=== PATIENT | female | born 1960 | race Caucasian/White ===

== ENCOUNTER 2016-08-13 09:44 | Emergency (ER) | payer SELFPAY ==
[2016-08-13] MEDS ORDERED: Acetaminophen 500 MG TAB ONE (10:21)
--- NOTE | 2016-08-13 10:38 | ERRECORD ---
[facility] EMERGENCY RECORD HPI COUGH (10:18 SHAN) CHIEF COMPLAINT: Patient presents for evaluation of cough, Patient presents for evaluation of facial tenderness, left more on right, green sputum, going on for several days and worsening. HISTORIAN: History provided by patient. RELIEVED BY: Patient's condition relieved by nothing. ROS (10:19 SHAN) CONSTITUTIONAL: Negative constitutional review of systems, Historian denies chills, denies fever. EYES: Negative eye review of systems. ENT: Negative ears, nose, throat review of systems. CARDIOVASCULAR: Negative cardiovascular review of systems, Historian denies chest pain, denies palpitations. RESPIRATORY: Negative respiratory review of systems, Historian complains of cough, Historian denies shortness of breath. GI: Negative gastrointestinal review of systems, Historian denies abdominal pain, denies constipation, denies diarrhea. MUSCULOSKELETAL: Negative musculoskeletal review of systems. SKIN: Negative skin review of systems. NEUROLOGIC: Negative neurologic review of systems. ENDOCRINE: Negative endocrine review of systems. HEMO/LYMPHATIC: Normal hematologic/lymphatic system review. PSYCHIATRIC: Negative psychiatric review of systems. NOTES: All other ROS is negative except as listed in HPI. PAST MEDICAL HISTORY MEDICAL HISTORY: Notes: VERIFIED 03-19-15, No past medical history, No past medical history, Flu vaccine not up to date. (09:55 SFRE) FEMALE SURGICAL HISTORY: VERIFIED 03-19-15, Surgical history of tubal ligation, Date of surgery 1986, rt leg knee surgery, left hand tendon. (09:55 SFRE) PSYCHIATRIC HISTORY: Notes: VERIFIED 03-19-15, Notes: None. (09:55 SFRE) SOCIAL HISTORY: Social History includes VERIFIED 03-19-15, Patient drinks socially, every week, Patient denies drug use, Patient currently uses tobacco, smokes cigarettes, Light tobacco smoker, Patient has smoked for 30 years, Patient smokes 1/2 pack per day. DENIES DRUGS. (09:55 SFRE) NOTES: I have reviewed and agree with the PMH/PSxH/FamHx/SocHx obtained by the nurse. (:19 SHAN) KNOWN ALLERGIES No Known Allergies CURRENT MEDICATIONS (09:55 SFRE) None &a-1R&a+25V*p+0X*y5606L*c152B*c15G*c2P*p-0X&a-25V&a+1RName: Fifi Crouch : F55 MedRec: [id number] AcctNum: [id number] Prepared: Cyndee Aug 13, 2016 16:32 by Interface Page 1 of 3 pMD [facility] EMERGENCY RECORD VITAL SIGNS (09:53 SFRE) VITAL SIGNS: BP: 175/75, Pulse: 69, Resp: 18, Temp: 99.2 (Tympanic), Pain: 7 (Pressure), O2 sat: 99 on Room Air, Time: 08/13/2016 09:53. PHYSICAL EXAM (10:19 SHAN) CONSTITUTIONAL: Vital signs reviewed, Patient appears non toxic, Patient alert and oriented to person, place and time, Pt is in no apparent distress. HEAD: Head exam included findings of head atraumatic, normocephalic. EYES: Eye exam included findings of eyelids normal to inspection, Pupils equally round and reactive to light, Extraocular muscles intact. ENT: Nose exam normal, no nasal deformity, no bleeding from nares, Pharynx exam normal, Mouth exam normal, mucous membranes moist, bilateral maxillary sinus tenderness; right more than left. NECK: Neck exam included findings of normal range of motion, Trachea midline. RESPIRATORY CHEST: Respiratory and chest exam normal, Breath sounds with some mild ronchi, No wheezing, No rales, Chest exam included findings of chest movement symmetrical, Chest expansion equal. CARDIOVASCULAR: Cardiovascular assessment normal, Cardiovascular exam included findings of heart rate regular rate and rhythm, Heart sounds normal. ABDOMEN FEMALE: Abdominal exam included findings of abdomen nontender, Bowel sounds normal, no mass, no pulsatile masses, no peritoneal signs. BACK: Back exam included findings of normal inspection, range of motion normal, no costovertebral angle tenderness. UPPER EXTREMITY: Upper extremity exam included findings of inspection normal, Range of motion normal. LOWER EXTREMITY: Lower extremity exam included findings of inspection normal, Range of motion normal. NEURO: Neuro exam findings include patient oriented to person, place and time, Speech normal, no focal motor deficits, no focal sensory deficits. SKIN: Skin exam included findings of skin warm, dry, and normal in color. LYMPHATIC: Lymphatic exam normal. PSYCHIATRIC: Psychiatric exam included findings of patient oriented to person place and time, Normal affect. MEDICATION ADMINISTRATION SUMMARY Drug Name: Tylenol, Dose Ordered: 2 tab(s), Route: Oral, Status: Given, Time: 10:19 08/13/2016, Detailed record available in Medication Service section. &a-1R&a+25V*p+0X*k7035V*c152B*c15G*c2P*p-0X&a-25V&a+1RName: Fifi Crouch : F55 MedRec: [id number] AcctNum: [id number] Prepared: FriAug 13, 2016 16:32 by Interface Page 2 of 3 pMD [facility] EMERGENCY RECORD DOCTOR NOTES (:) TEXT: Adult female with respiratory virus and secondary maxillary sinusitis; right worse than left; getting worse and with green sputum and mild ronchi. PROBLEM LIST No recorded problems DIAGNOSIS (: YUNIER) FINAL: PRIMARY: bilateral maxillary sinusitis, acute, ADDITIONAL: Acute bronchitis. PRESCRIPTION (:) Cipro tablet: TABLET : 500 mg : ORAL : Quantity: 1 Unit: tab(s) Route: ORAL Schedule: 2 times a day Dispense: 20 Unit: tab(s) May substitute. Refills: No Refills . NOTES: No Refills. DISPOSITION PATIENT: Disposition Type: Discharge, Disposition: *Discharge Home. (: YUNIER) Patient left the department. (: JAMILA) Rodriguez: JAMILA=RICHY Byrd, Margot FAYE=MD Meghan, Garrick &a-1R&a+25V*p+0X*t1244Z*c152B*c15G*c2P*p-0X&a-25V&a+1RName: Fifi Crouch : F55 MedRec: [id number] AcctNum: [id number] Prepared: FriAug 13, 2016 16:32 by Interface Page 3 of 3 pMD [facility]
--- NOTE | 2016-08-13 10:42 | PICIS ---
[facility] EMERGENCY RECORD TRIAGE (09:55 SFRE) TRIAGE NOTES: SORE THROAT, EARS CLOGGED. (09:55 SFRE) PATIENT: NAME: Fifi Crouch, AGE: 55, GENDER: female, : Mon 1960, TIME OF GREET: FriAug 13, 2016 09:45, PREFERRED LANGUAGE: Portuguese, ETHNICITY: Not or , ECODE BILLING MAP: [facility], SSN: [id number], Zip Code: [address], KG WEIGHT: 63.50, PHONE: , , , PERSON ID: [id number], PCP: NO PCP. (09:55 SFRE) COMPLAINT: SORE THROAT,EARS CLOGGED. (09:55 SFRE) ADMISSION: URGENCY: 5 Fast Track, ADMISSION SOURCE: Home, TRANSPORT: Walk-in, BED: ED -04. (09:55 SFRE) PROVIDERS: TRIAGE NURSE: Margot Byrd RN. (09:55 SFRE) VITAL SIGNS: BP 175/75, Pulse 69, Resp 18, Temp 99.2, (Tympanic), Pain 7, (Pressure), O2 Sat 99, on Room Air, Time 08/13/2016 09:53. (09:53 SFRE) PREVIOUS VISIT ALLERGIES: No Known Allergies. (09:55 SFRE) No Known Allergies. (09:55 SFRE) KNOWN ALLERGIES No Known Allergies CURRENT MEDICATIONS (09:55 SFRE) None VITAL SIGNS (09:53 SFRE) VITAL SIGNS: BP: 175/75, Pulse: 69, Resp: 18, Temp: 99.2 (Tympanic), Pain: 7 (Pressure), O2 sat: 99 on Room Air, Time: 08/13/2016 09:53. NURSING ASSESSMENT: ENT (12:35 SFRE) CONSTITUTIONAL: Patient arrives ambulatory, Gait steady, History obtained from patient, Patient appears, generally ill, Patient cooperative, Patient alert, Oriented to person, place and time, Skin warm, Skin dry, Skin normal in color, Mucous membranes pink, Mucous membranes moist, Patient is well-groomed, Patient complains of SORE THROAT, EARS FEEL CLOGGED UP. PAIN: pressure pain, to bilateral ears, to the throat, on a scale 0-10 patient rates pain as 7, Pain exacerbated by nothing, Nothing has been tried to alleviate the pain. ENT: Mouth and throat assessment findings include mouth inspection normal, Uvula normal, Tonsils normal, Mucous membranes pink, and moist, Able to swallow, Speech normal, no associated fever, Associated with headache, GENERALIZED REPORTS PRESSURE ALL OVER HEAD, FACE, AND EARS. RESPIRATORY/CHEST: Breath sounds clear, Respiratory assessment findings include respiratory effort easy, Respirations regular, Conversing normally, Neck and chest exam findings include trachea midline, Chest expansion equal, Chest movement symmetrical, no signs of distress, no associated cough noted. &a-1R&a+25V*p+0X*f0860M*c152B*c15G*c2P*p-0X&a-25V&a+1RName: Fifi Crouch : F55 MedRec: [id number] AcctNum: [id number] Prepared: FriAug 13, 2016 16:38 by Interface Page 1 of 5 pMD [facility] EMERGENCY RECORD NURSING PROCEDURE: DISCHARGE NOTE (10:25 SFRE) DISCHARGE: Patient discharged to home, ambulating without assistance, driving self, unaccompanied, Summary of Care printed/ provided, Patient requested and was provided an electronic copy of Discharge Instructions, Discharge instructions given to patient, Simple or moderate discharge teaching performed, by RICHY MORENO, F/U WITH PCP. RX DIRECTED. RETURN TO ED NEEDED FOR NEW/CONCERNING OR WORSENING SYMPTOMS., Prescriptions given and instructions on side effects given, Name of prescription(s) given: Angelique CULP person(s) verbalized understanding of discharge instructions and follow-up care. MEDICATION ADMINISTRATION SUMMARY Drug Name: Tylenol, Dose Ordered: 2 tab(s), Route: Oral, Status: Given, Time: 10:19 08/13/2016, Detailed record available in Medication Service section. MEDICATION SERVICE (10:19 SHAN) Tylenol: Order: Tylenol (acetaminophen) - Dose: 2 tab(s) : Oral Schedule: Now Ordered by: Garrick Christianson MD Entered by: Garrick Christianson MD FriAug 13, 2016 10:17 Documented as given by: Margot Byrd RN FriAug 13, 2016 10:19 Patient, Medication, Dose, Route and Time verified prior to administration. Amount given: 1g, Site: Medication administered P.O., Correct patient, time, route, dose and medication confirmed prior to administration, Patient advised of actions and side-effects prior to administration, Allergies confirmed and medications reviewed prior to administration, Patient in position of comfort, Side rails up, Cart in lowest position, Family at bedside. HPI COUGH (10:18 SHAN) CHIEF COMPLAINT: Patient presents for evaluation of cough, Patient presents for evaluation of facial tenderness, left more on right, green sputum, going on for several days and worsening. HISTORIAN: History provided by patient. RELIEVED BY: Patient's condition relieved by nothing. ROS (10:19 SHAN) CONSTITUTIONAL: Negative constitutional review of systems, Historian denies chills, denies fever. EYES: Negative eye review of systems. ENT: Negative ears, nose, throat review of systems. CARDIOVASCULAR: Negative cardiovascular review of systems, Historian denies chest pain, denies palpitations. RESPIRATORY: Negative respiratory review of systems, Historian complains of cough, Historian denies shortness of &a-1R&a+25V*p+0X*r2843R*c152B*c15G*c2P*p-0X&a-25V&a+1RName: Fifi Crouch : F55 MedRec: [id number] AcctNum: [id number] Prepared: Cyndee Aug 13, 2016 16:38 by Interface Page 2 of 5 pMD [facility] EMERGENCY RECORD breath. GI: Negative gastrointestinal review of systems, Historian denies abdominal pain, denies constipation, denies diarrhea. MUSCULOSKELETAL: Negative musculoskeletal review of systems. SKIN: Negative skin review of systems. NEUROLOGIC: Negative neurologic review of systems. ENDOCRINE: Negative endocrine review of systems. HEMO/LYMPHATIC: Normal hematologic/lymphatic system review. PSYCHIATRIC: Negative psychiatric review of systems. NOTES: All other ROS is negative except as listed in HPI. PAST MEDICAL HISTORY MEDICAL HISTORY: Notes: VERIFIED 03-19-15, No past medical history, No past medical history, Flu vaccine not up to date. (09:55 SFRE) FEMALE SURGICAL HISTORY: VERIFIED 03-19-15, Surgical history of tubal ligation, Date of surgery 1986, rt leg knee surgery, left hand tendon. (09:55 SFRE) PSYCHIATRIC HISTORY: Notes: VERIFIED 03-19-15, Notes: None. (09:55 SFRE) SOCIAL HISTORY: Social History includes VERIFIED 03-19-15, Patient drinks socially, every week, Patient denies drug use, Patient currently uses tobacco, smokes cigarettes, Light tobacco smoker, Patient has smoked for 30 years, Patient smokes 1/2 pack per day. DENIES DRUGS. (09:55 SFRE) NOTES: I have reviewed and agree with the PMH/PSxH/FamHx/SocHx obtained by the nurse. (10:19 SHAN) PHYSICAL EXAM (10:19 SHAN) CONSTITUTIONAL: Vital signs reviewed, Patient appears non toxic, Patient alert and oriented to person, place and time, Pt is in no apparent distress. HEAD: Head exam included findings of head atraumatic, normocephalic. EYES: Eye exam included findings of eyelids normal to inspection, Pupils equally round and reactive to light, Extraocular muscles intact. ENT: Nose exam normal, no nasal deformity, no bleeding from nares, Pharynx exam normal, Mouth exam normal, mucous membranes moist, bilateral maxillary sinus tenderness; right more than left. NECK: Neck exam included findings of normal range of motion, Trachea midline. RESPIRATORY CHEST: Respiratory and chest exam normal, Breath sounds with some mild ronchi, No wheezing, No rales, Chest exam included findings of chest movement symmetrical, Chest expansion equal. CARDIOVASCULAR: Cardiovascular assessment normal, Cardiovascular exam included findings of heart rate regular rate and rhythm, Heart sounds normal. ABDOMEN FEMALE: Abdominal exam included findings of abdomen &a-1R&a+25V*p+0X*d5137G*c152B*c15G*c2P*p-0X&a-25V&a+1RName: Fifi Crouch : F55 MedRec: [id number] AcctNum: [id number] Prepared: Cyndee Aug 13, 2016 16:38 by Interface Page 3 of 5 pMD [facility] EMERGENCY RECORD nontender, Bowel sounds normal, no mass, no pulsatile masses, no peritoneal signs. BACK: Back exam included findings of normal inspection, range of motion normal, no costovertebral angle tenderness. UPPER EXTREMITY: Upper extremity exam included findings of inspection normal, Range of motion normal. LOWER EXTREMITY: Lower extremity exam included findings of inspection normal, Range of motion normal. NEURO: Neuro exam findings include patient oriented to person, place and time, Speech normal, no focal motor deficits, no focal sensory deficits. SKIN: Skin exam included findings of skin warm, dry, and normal in color. LYMPHATIC: Lymphatic exam normal. PSYCHIATRIC: Psychiatric exam included findings of patient oriented to person place and time, Normal affect. EVENTS TRANSFER: Triage to Emergency Main ED -04. (FriAug 13, 2016 09:55 SFRE) Removed from Emergency Main ED -04. (10:26 SFRE) DOCTOR NOTES (10: SHAN) TEXT: Adult female with respiratory virus and secondary maxillary sinusitis; right worse than left; getting worse and with green sputum and mild ronchi. PROBLEM LIST No recorded problems DIAGNOSIS (10:23 SHAN) FINAL: PRIMARY: bilateral maxillary sinusitis, acute, ADDITIONAL: Acute bronchitis. DISPOSITION PATIENT: Disposition Type: Discharge, Disposition: *Discharge Home. (10: SHAN) Patient left the department. (10: SFRE) INSTRUCTION (10:24 SHAN) DISCHARGE: SINUSITIS, ABX TX. SPECIAL: 1. drink extra fluids, rest 2. antibiotic twice a day until gone 3. otc mucinex, Tylenol and ibuprofen 4. return if problem worsens. PRESCRIPTION (10: SHAN) Cipro tablet: TABLET : 500 mg : ORAL : Quantity: 1 Unit: tab(s) Route: ORAL Schedule: 2 times a day Dispense: 20 Unit: tab(s) May substitute. Refills: No Refills . &a-1R&a+25V*p+0X*v2767M*c152B*c15G*c2P*p-0X&a-25V&a+1RName: Fifi Crouch : F55 MedRec: [id number] AcctNum: [id number] Prepared: FriAug 13, 2016 16:38 by Interface Page 4 of 5 pMD [facility] EMERGENCY RECORD NOTES: No Refills. IMAGING (12:57 SFRE) *DISCHARGE INSTRUCTIONS RECEIPT: Image captured from scanner. *SUPPLY CHARGE SHEET: Image captured from scanner. ADMIN DIGITAL SIGNATURE: RICHY Byrd, Margot. (12:58 SFRE) MD Christianson Stanley. (16:28 YUNIER) Rodriguez: JAMILA=RICHY Byrd, Margot FAYE=MD Christianson Stanley &a-1R&a+25V*p+0X*s0168A*c152B*c15G*c2P*p-0X&a-25V&a+1RName: Fifi Crouch : F55 MedRec: [id number] AcctNum: [id number] Prepared: Cyndee Aug 13, 2016 16:38 by Interface Page 5 of 5 pMD [facility]
== END 2016-08-13 10:25 | disposition home or self-care (01) ==
LOC: MADERS 09:44
DX: J01.00 Acute maxillary sinusitis, unspecified (principal); J20.9 Acute bronchitis, unspecified; F17.210 Nicotine dependence, cigarettes, uncomplicated
CPT/HCPCS: 99283

== ENCOUNTER 2017-09-06 06:12 | Emergency (ER) | payer SELFPAY ==
[2017-09-06] MEDS ORDERED: Ibuprofen 800 MG TAB ONE (06:40)
== END 2017-09-06 06:45 | disposition home or self-care (01) ==
LOC: MADERS 06:12
DX: J11.1 Influenza due to unidentified influenza virus with other respiratory manifestations (principal); I10 Essential (primary) hypertension; F17.210 Nicotine dependence, cigarettes, uncomplicated
CPT/HCPCS: 99283

== ENCOUNTER 2017-11-20 19:46 | Emergency (ER) | payer SELFPAY ==
[2017-11-20 20:03] LABS: INR-International Normal Ratio 1.2; Prothrombin Time 15.2 SEC (12.0-14.7)
[2017-11-20 20:10] LABS: #Lymphocytes 1.9 thou/uL (1.20-3.40); #Monocytes 0.3 thou/uL (0.11-0.59); #Neutrophils 2.3 thou/uL (1.40-6.50); %Basophils 0.7 % (0.0-1.0); %Eosinophils 0.9 % (0.0-10.0); %Lymphocytes 41.6 % (21.0-51.0); %Monocytes 6.5 % (0.0-10.0); %Neutrophils 50.4 % (42.0-75.0); Hemoglobin 14.4 g/dL (12.0-16.0); Large Platelets SLIGHT; MDiff Complete? YES; Mean Corpuscular HGB CONC 33.8 g/dL (32.0-36.0); Mean Corpuscular Hemoglobin 34.6 pg (27.0-31.0); Mean Corpuscular Volume 102.6 fl (81.0-99.0); Mean Platelet Volume 15.5 fL (7.4-10.4); PLT Morphology Comment Appears Decreased; Platelet Count 36 thou/uL (130-400); RBC Distribution Width 13.2 % (11.5-14.5); Red Blood Cell (RBC) Count 4.15 mill/uL (4.20-5.40); White Blood Cell (WBC) Count 4.6 thou/uL (4.8-10.8)
[2017-11-20 20:14] LABS: ALT (SGPT) 118 U/L (8-55); AST (SGOT) 114 U/L (5-34); Albumin 3.1 g/dL (3.5-5.0); Alkaline Phosphatase 249 U/L (40-150); Anion Gap 14 mmol/L (10-20); BUN (Urea Nitrogen) 10 mg/dL (9.8-20.1); Bilirubin, Total 1.7 mg/dL (0.2-1.2); Calc. Creatinine Clearance 0 mL/min (70-130); Calcium 8.7 mg/dL (7.8-10.44); Carbon Dioxide 22 mmol/L (22-29); Chloride 104 mmol/L (98-107); Estimated GFR-MDRD Greater than 90; Globulin 4.8 g/dL (2.4-3.5); Glucose 218 mg/dL (70-105); Potassium 4.1 mmol/L (3.5-5.1); Protein, Total 7.9 g/dL (6.0-8.3); Sodium 136 mmol/L (136-145)
[2017-11-20 20:15] LABS: CKMB 2.4 ng/mL (0-6.6); Troponin I Less than 0.010 ng/mL (< 0.028)
--- NOTE | 2017-11-20 20:21 | CT ---
NONCONTRAST HEAD CT: 11/20/17 HISTORY: Possible stroke. Left sided weakness. COMPARISON: None. TECHNIQUE: Noncontrast head CT is performed from skull base to skull vertex. FINDINGS: There is a large intraparenchymal hematoma involving the right parietal and temporal lobes. There is associated edema and sulcal effacement. Hematoma measures 4.9 x 4.9 cm. There is subdural blood track ing along the right aspect of the falx. There is evidence of interventricular hemorrhage. Basilar cis terns are patent. There is mild mass effect upon the ventricle with leftward deviation of the septum pellucidum. Possible small focus of subarachnoid hemorrhage in the right Sylvian fissure. There is 4 mm of right to left subfalcine herniation. The calvarium is intact. Adequate aeration of the sinuses and mastoid air cells IMPRESSION: Extensive intracranial hemorrhage as described above. The hemorrhage is centered in the right parieta l lobe. There is evidence of right parafalcine subdural blood. There is evidence of interventricular hemorrhage. There is evidence of right to left subfalcine herniation. Results of the study discussed with Dr. Bhupendra Plascencia, 11/20/17 at 8:06 p.m. Code CR POS: [facility]
[2017-11-20 20:25] LABS: Bilirubin Negative (Negative); Blood, Urine Negative (Negative); Clarity Clear (Clear); Glucose, Urine (Dipstick) 500 mg/dL (Negative); Leukocyte Negative (Negative); Nitrite Negative (Negative); Protein, Urine (Dipstick) 30 mg/dL (Neg-Trace); Urobilinogen 0.2 mg/dL (0.2-1.0)
[2017-11-20 20:31] LABS: Cocaine Metabolite Screen Detected (NotDetected); Phencyclidine (PCP) Not Detected (NotDetected); THC/Cannabinoid Screen Not Detected (NotDetected)
[2017-11-20 20:32] LABS: Amphetamine Not Detected (NotDetected); Barbiturates Screen Not Detected (NotDetected); Benzodiazepine Screen Not Detected (NotDetected); Medtox Control Line Valid? VALID (VALID); Methadone Not Detected (NotDetected); Methamphetamine Not Detected (NotDetected); Opiate Screen Not Detected (NotDetected); Oxycodone Screen Not Detected (NotDetected); Tricyclic Screen Not Detected (NotDetected)
[2017-11-20] MEDS ORDERED: Ondansetron HCl/PF 4 MG/2 ML Vial ONE (20:33)
[2017-11-20 20:36] LABS: Bacteria/HPF None Seen HPF (None Seen); RBC/HPF 0-3 HPF (0-3); Squamous Epithelial 0-3 HPF (0-3); WBC/HPF 0-3 HPF (0-3)
[2017-11-20] MEDS ORDERED: Morphine 10 MG/ML VIAL ONE (20:36)
== END 2017-11-20 20:47 | disposition short-term general hospital (02) ==
LOC: MADERS 19:46
DX: I62.9 Nontraumatic intracranial hemorrhage, unspecified (principal); D69.6 Thrombocytopenia, unspecified; F17.210 Nicotine dependence, cigarettes, uncomplicated
CPT/HCPCS: 36416; 70450; 80053; 80306; 81003; 81015; 82553; 84484; 85025; 85610; 85730; 93005; 96374; 96375; J2270; J2405; J7070